=== PATIENT | male | born 1955 | race Hispanic/Latino ===

== ENCOUNTER 2018-04-04 06:11 | Inpatient (IN) | payer MEDICAID, OTHER ==
[2018-04-04 07:12] LABS: BASO # 0.1 K/uL (0.0-0.2); BASO % 0.8 % (0.0-2.0); EOS # 0.1 K/uL (0.0-0.7); EOS % 2.1 % (0.0-4.0); HEMOGLOBIN 12.2 g/dL (12.0-18.0); LYMPH # 1.7 K/uL (1.0-4.3); LYMPH % 24.4 % (20.0-40.0); MEAN CELL VOLUME 91.2 fL (80.0-94.0); MEAN CORPUSCULAR HEMOGLOBIN 31.1 pg (27.0-31.0); MEAN CORPUSCULAR HGB CONC 34.1 g/dL (33.0-37.0); MEAN PLATELET VOLUME 8.9 fL (7.2-11.7); MONO # 0.6 K/uL (0.0-0.8); NEUT # 4.6 K/uL (1.8-7.0); NEUT % 64.7 % (50.0-75.0); RBC 3.93 Mil/uL (4.40-5.90); RED CELL DISTRIBUTION WIDTH 13.5 % (11.5-14.5); WHITE BLOOD COUNT 7.1 K/uL (4.8-10.8)
[2018-04-04 07:28] LABS: ALB/GLOB RATIO 1.6 (1.0-2.1); ALBUMIN 4.1 g/dL (3.5-5.0); ALT/SGPT 26 U/L (21-72); AST/SGOT 23 U/L (17-59); BLOOD UREA NITROGEN 18 mg/dL (9-20); CALCIUM 8.9 mg/dl (8.6-10.4); GFR NON-AFRICAN AMERICAN > 60
[2018-04-04 08:57] LABS: SQUAMOUS EPITHIAL < 1 /hpf (0-5); URINE BILIRUBIN NEGATIVE (NEGATIVE); URINE BLOOD NEGATIVE (NEGATIVE); URINE CLARITY Clear (Clear); URINE COLOR Yellow (YELLOW); URINE GLUCOSE (UA) NORMAL (Normal); URINE LEUKOCYTE ESTERASE NEG Leu/uL (Negative); URINE PROTEIN 2+ mg/dL (NEGATIVE); URINE UROBILINOGEN NORMAL mg/dL (0.2-1.0)
--- NOTE | 2018-04-04 09:44 | C.PDOC ---
History Of Present Illness 62 years old male presents to ED for evaluation of suicidal ideations with plan. He states he plans to cut himself with razor blades. Patient denies HI, hallucinations, or any current physical complaints. Time Seen by Provider: 04/04/18 07:13 Chief Complaint (Nursing): Psychiatric Evaluation History Per: Patient History/Exam Limitations: no limitations Current Symptoms Are (Timing): Still Present Suicide/Self Injury Attempted (Context): None Modifying Factor(s): None Associated Symptoms: Suicidal Thoughts, Suicidal Plan Involuntary Hold By: Emergency Physician Past Medical History Reviewed: Historical Data, Nursing Documentation, Vital Signs Vital Signs: Last Vital Signs Temp 98.1 F 04/04/18 06:20 Pulse 70 04/04/18 06:20 Resp 16 04/04/18 06:20 BP 155/70 H 04/04/18 06:20 Pulse Ox 100 04/04/18 06:20 - Medical History PMH: Depression, Deep Vein Thrombosis, Seizures Family History: States: No Known Family Hx - Social History Hx Alcohol Use: No Hx Substance Use: No Review Of Systems Constitutional: Negative for: Fever, Chills Cardiovascular: Negative for: Chest Pain, Palpitations Respiratory: Negative for: Shortness of Breath Gastrointestinal: Negative for: Nausea, Vomiting, Abdominal Pain, Diarrhea Skin: Negative for: Rash Neurological: Negative for: Weakness, Numbness Psych: Positive for: Depression, Suicidal ideation Physical Exam - Physical Exam Appears: Well, Non-toxic, No Acute Distress, Other (Flat affect ) Skin: Normal Color, Warm, Dry, No Rash Eye(s): bilateral: Normal Inspection Oral Mucosa: Moist Neck: Supple Cardiovascular: Rhythm Regular Respiratory: Normal Breath Sounds, No Rales, No Rhonchi, No Wheezing Gastrointestinal/Abdominal: Normal Exam, Bowel Sounds, Soft, No Tenderness Extremity: Normal ROM Extremity: Bilateral: Atraumatic, Normal Color And Temperature, Normal ROM Neurological/Psych: Oriented x3 Gait: Steady ED Course And Treatment - Laboratory Results Result Diagrams: 04/04/18 07:06 04/10/18 07:31 O2 Sat by Pulse Oximetry: 100 (RA) Pulse Ox Interpretation: Normal Progress Note: Blood work, UA, UDS ordered and reviewed. 10:35am- Patient medically cleared. Pending crisis. 10:47- Patient accepted by Dr. Arevalo for psychiatric admission. Disposition - Disposition Disposition: HOSPITALIZED Disposition Time: 10:47 Condition: STABLE - Clinical Impression Clinical Impression: Depression - Scribe Statement The provider has reviewed the documentation as recorded by the [facility] Vic Calderon All medical record entries made by the Scribe were at my direction and personally dictated by me. I have reviewed the chart and agree that the record accurately reflects my personal performance of the history, physical exam, medical decision making, and the department course for this patient. I have also personally directed, reviewed, and agree with the discharge instructions and disposition. Decision To Admit - Pt Status Changed To: Hospital Disposition Of: Inpatient - Admit Certification Admit to Inpatient:: After my assessment, the patient will require hospitalization for at least two midnights. This is because of the severity of symptoms shown, intensity of services needed, and/or the medical risk in this patient being treated as an outpatient. - InPatient: Physician Admission Certification: I certify that this patient requires 2 or more midnights of care for the following reason:: see notes - . Bed Request Type: Psychiatry Admitting Physician: Rocky Arevalo Patient Diagnosis: Depression
[2018-04-04 10:13] LABS: BARBITURATES, UR POSITIVE (NEGATIVE); BENZODIAZEPINES, UR NEGATIVE (NEGATIVE); OPIATES, UR NEGATIVE (NEGATIVE); PHENCYCLIDINE, UR NEGATIVE (NEGATIVE)
--- NOTE | 2018-04-04 12:41 | PCM.BM ---
<Barbara Falkn - Last Filed: 04/04/18 12:38> Treatment Plan Problems - Problems identified on initial assessmt Social Isolation Date Initiated: 04/04/18 Time Initiated: 12:39 Assessment reference: NA Status: Active Suicidal Ideation Date Initiated: 04/04/18 Time Initiated: 12:39 Assessment reference: NA Status: Monitor Treatment assets and liabiliti Patient Assests: ADL independent, negotiates basic needs, cognitively intact Patient Liabilities: live alone, poor support system, medical problems - Milieu Protocol Maintain good personal hygiene: daily Encourage regular showers, daily Remind patient to perform daily oral care, daily Assist patient to perform ADL's Conduct patient checks and document Observation sheet: Q15 minutes Maintain personal safety: every shift Educate patient to report safety concerns to staff, every shift Monitor environment for contraband/sharps Medication safety: Monitor for expected outcome, potential side effects: every shift, Assess barriers to learning: every shift, Assess readiness for medication education: every shift <Julisa Allan - Last Filed: 04/05/18 11:52> Family Contact Family involvement: Patient does not wish Family/SO involvement Family contact: Patient declines to allow family contact at present - Goals for Treatment Patient goals for treatment: "I want to be discharge." Discharge/Continuing Care - Education Needs Education Needs: Patient Medication, Patient Diagnosis/Disease Process, Patient Coping Skills, Patient Placement options, Patient Community resources - Discharge Discharge Criteria: Free of Suicidal thoughts, Free of agitation, Normal sleep pattern, Ability to care for self, Reduction of target symptoms Discharge to:: Assisted - Treatment Team Participation Discussed with Family/SO: No Was Patient/Family/SO present at Treatment Team Meeting: Yes <Fabiola Blackwood - Last Filed: 04/05/18 14:00> - Diagnosis (1) Depression, major, severe recurrence Status: Acute Interventions: 04/05/18 14:00 * Assess/adjust medications daily and /or as needed * See patient on an individual basis 7x/week to assess symptoms of depression * Monitor for side effects & effectiveness of medications *
--- NOTE | 2018-04-04 17:40 | PCM.PSYCH ---
Initial Psychiatric Evaluation - Initial Psychiatric Evaluation Type of Admission: Voluntary Legal Status: Capacity Chief Complaint (in patient's own words): I was depressed, wanted to cut my wrist but police brought me here. History of Present Illness and Precipitating Events: Patient is a 62 years old, , on disability, male with history of depression since 2010, no treatment was admitted due to worsening of depression and suicidal ideations. Patient was started feeling depressed in 2010 after the of his . Patient was not on any treatment for depression since then. Today patient started feeling more depressed, with suicidal ideations with plan to cut his wrist with a blade. At that time patient was on a train station when he was caught with a blade, by police who brought him to the [facility]. Patient reported feeling depression with decreased sleep, no change in appetite. Frequent suicidal ideations, history of 1 suicidal I attempt after the of his in 2010, by walking [place] track. Patient was admitted in the hospital at that time. Patient reported feeling hopelessness and helplessness. Patient was in a boarding home and was attending partial care from August 2015 to August 2017. He was also seeing a psychiatrist, last seen about 6 months ago. Was not getting any medication from his psychiatrist. Was not getting any medications from his psychiatrist. Patient denied any psychotic, manic or anxiety symptoms. Patient has history of alcoholism in the past. Last used more than 30 years ago. Patient smokes 5 cigarettes daily and refusing for nicotine patch. Patient has history of abdominal surgery and vascular surgery. Recently he had bypass surgery and femoral artery, and had stent placement on February 2018. Patient was born in [place], has 10th grade of education and also has GED. He is disabled. He is and has 7 grown up children from 2 wives. Patient is homeless since August 2017. Before that he was living in a boarding home. His height is 6 feet 1 inches and weight is 176 pounds. Current Medications: Active Medications Generic Name Dose Route Start Last Admin Trade Name Freq PRN Reason Stop Dose Admin Aspirin 81 mg 04/04/18 13:15 04/04/18 14:06 Ecotrin PO 81 mg DAILY JIN Administration Influenza Virus Vaccine 60 mcg 04/07/18 10:00 Flucelvax Quad [id number] Syr IM 04/07/18 10:01 .ONCE ONE Levetiracetam 500 mg 04/04/18 18:00 Keppra PO BID [facility] Levetiracetam 250 mg 04/04/18 18:00 Keppra PO BID [facility] Lorazepam 1 mg 04/04/18 13:09 04/04/18 14:06 Ativan PO 1 mg Q6 PRN Administration Anxiety Phenobarbital 64.8 mg 04/04/18 18:00 Phenobarbital Tab PO BID [facility] Phenytoin 200 mg 04/04/18 18:00 Dilantin PO BID [facility] Pneumococcal Polyvalent Vaccine 0.5 ml 04/07/18 10:00 Pneumovax 23 Vaccine IM 04/07/18 10:01 .ONCE ONE Rivaroxaban 20 mg 04/04/18 13:15 04/04/18 14:06 Xarelto PO 20 mg DAILY [facility] Administration Past Psychiatric History - Past Psychiatric History Previous Treatment History: None History of Abuse: None reported History of ETOH/Drug Use: See HPI History of Family Illness: None reported Pertinent Medical Hx (Current Medical&Sleep Prob, Allergies): Allergies Allergy/AdvReac Type Severity Reaction Status Date / Time No Known Allergies Allergy Verified 04/04/18 06:25 Aspirin EC 81 mg PO DAILY 04/04/18 Levetiracetam [Keppra Xr] 750 mg PO BID 04/04/18 Phenytoin Sodium Extended [Extended Phenytoin Sodium] 200 mg PO Q12 04/04/18 RX: Phenobarbital 60 mg PO Q12 04/04/18 RX: Ropinirole HCl 0.25 mg PO HS 04/04/18 Rivaroxaban [Xarelto] 20 mg PO DAILY 04/04/18 Epilepsy Vascular disease Review of Systems - Psychiatric Psychiatric: As Per HPI, Depression, Irritability, Suicidal Ideation Mental Status Examination - Personal Presentation Personal Presentation: Looks stated age - Affect Affect: Depressed - Motor Activity Motor Activity: Calm - Reliability in Providing Information Reliability in Providing Information: Fair - Speech Speech: Organized - Mood Mood: Depressed - Formal Thought Process Formal Thought Process: No Impairment - Hallucinations/Delusions Hallucinations: Other (None reported) Delusions: Other - Obsessions/Compulsions Obsessions: None Compulsions: None - Cognitive Functions Orientation: Person, Place, Situation, Time Sensorium: Alert Attention/Concentration: Attentive Abstract Thinking: [place] Estimate of Intelligence: Average Judgement: Intact, as evidence by: Insight regarding need for hospitalization Memory: Recent intact, as evidence by: Ability to recall events of the day, Remote intact, as evidenced by: Ability to recall historical events - Risk Risk: Seizure, Diminished functioning - Strength & Assets Inventory Strength & Assets Inventory: Cooperative - Limitations Limitations: Other (Homeless) DSM 5 DX - DSM 5 DSM 5 Diagnosis: Major depressive disorder recurrent severe without psychotic features Epilepsy Vascular disease - Recommended/Plan of Treatment Treatment Recommendations and Plan of Treatment: Patient education. Supportive therapy. Will start patient's home medications. Patient is also getting phenobarbital and Xarelto which has interaction with each other and level of Xarelto is reduced by phenobarbital. Patient is aware of this and wants to continue all of his medications as he was taking before. Next PRN medications. Projected ELOS: 8-10-day - Smoking Cessation Smoking Cessation Initiated: No Reason for not providing: Patient refused
[2018-04-04] MEDS ORDERED: Phenytoin 100 mg/4 ml Oral Susp UD PO SCH (18:00)
--- NOTE | 2018-04-05 12:26 | PCM.PYCHPN ---
Psychiatric Progress Note - Psychiatric Progress Note Patient seen today, length of contact: 20 min Patient Chief Complaint: "I'm not well of course" Problems Identified/Issues Discussed: The pt is seen, chart reviewed, case discussed with staff. The pt is compliant with medications and reports no side-effects. Symptoms are improving but needs more time to stabilize. He is very easily irritable, sarcastic and even intimidating at times. He belittles therapy. He claims he cannot go to shelters b/c of his seizure meds, which may be true for rehabs but not shelters. Support given, psycho-education provided. After care discussed. Medication Change: Yes (start lexapro and remeron) Medical Record Reviewed: Yes Mental Status Examination - Cognitive Function Orientation: Person, Place, Situation, Time Memory: Impaired Attention: Poor Concentration: Poor Association: WNL Fund of Knowledge: WNL - Mood Mood: Depressed, Anxious - Affect Affect: Constricted, Depressed, Other (irate) - Speech Speech: Appropriate - Formal Thought Process Formal Thought Process: No Impairment - Suicidal Ideation Suicidal Ideation: No - Homicidal Ideation Homicidal Ideation: No Goal/Treatment Plan - Goal/Treatment Plan Need for Continued Stay: Severe depression anxiety, Discharge may exacerbated symptoms, Severe functional impairment Progress Toward Problem(s) and Goals/Treatment Plan: Continue medications Support and psychoeducation daily Attend groups and activities daily After care planning by STORMY Family contact by STORMY Suicide risk assessment daily Estimated Date of D/C: 04/08/18
--- NOTE | 2018-04-06 13:21 | PCM.PYCHPN ---
Psychiatric Progress Note - Psychiatric Progress Note Patient seen today, length of contact: 18 min Patient Chief Complaint: "I'm tired" Problems Identified/Issues Discussed: The pt is seen, chart reviewed, case discussed with staff. Support and psychoeducation given, CBT used briefly No new symptoms reported, improving slowly and needs more time No SEs from medications, risks discussed. After care discussed Medication Change: Yes (start lexapro and remeron) Medical Record Reviewed: Yes Mental Status Examination - Cognitive Function Orientation: Person, Place, Situation, Time Memory: Impaired Attention: Poor Concentration: Poor Association: WNL Fund of Knowledge: WNL - Mood Mood: Depressed, Anxious - Affect Affect: Constricted, Depressed, Other (irate) - Speech Speech: Appropriate - Formal Thought Process Formal Thought Process: No Impairment - Suicidal Ideation Suicidal Ideation: No - Homicidal Ideation Homicidal Ideation: No Goal/Treatment Plan - Goal/Treatment Plan Need for Continued Stay: Severe depression anxiety, Discharge may exacerbated symptoms, Severe functional impairment Progress Toward Problem(s) and Goals/Treatment Plan: Continue medications Support and psychoeducation daily Attend groups and activities daily After care planning by STORMY Family contact by STORMY Suicide risk assessment daily Estimated Date of D/C: 04/08/18
[2018-04-07] MEDS ORDERED: Pneumococcal 23-Valent Vaccine IM ONE (10:00)
[2018-04-07] MEDS ORDERED: Influenza Vaccine 60 mcg/0.5 mL SYR (4YR UP) IM ONE (10:00)
--- NOTE | 2018-04-07 14:09 | PCM.PYCHPN ---
Psychiatric Progress Note - Psychiatric Progress Note Patient seen today, length of contact: 15 min Patient Chief Complaint: "I'm not OK" Problems Identified/Issues Discussed: The pt is seen again, chart reviewed, and case is discussed with the team. The pt denies any side-effects from meds except for sedation. Attend activities and groups, brief individual therapy provided Not ready for discharge due to ongoing symptoms and high relapse risk. After care discussed again. Medication Change: Yes (alban streeter) Medical Record Reviewed: Yes Mental Status Examination - Cognitive Function Orientation: Person, Place, Situation, Time Memory: Impaired Attention: Poor Concentration: Poor Association: WNL Fund of Knowledge: WNL - Mood Mood: Depressed, Anxious - Affect Affect: Constricted, Depressed, Other (irate) - Speech Speech: Appropriate - Formal Thought Process Formal Thought Process: No Impairment - Suicidal Ideation Suicidal Ideation: No - Homicidal Ideation Homicidal Ideation: No Goal/Treatment Plan - Goal/Treatment Plan Need for Continued Stay: Severe depression anxiety, Discharge may exacerbated symptoms (still somewhat suicidal), Severe functional impairment Progress Toward Problem(s) and Goals/Treatment Plan: Continue medications Support and psychoeducation daily Attend groups and activities daily After care planning by STORMY Family contact by STORMY Suicide risk assessment daily Estimated Date of D/C: 04/09/18
--- NOTE | 2018-04-08 11:00 | PCM.PYCHPN ---
Psychiatric Progress Note - Psychiatric Progress Note Patient seen today, length of contact: 15 min Patient Chief Complaint: "I'm not okay" Problems Identified/Issues Discussed: Patient lying in bed, per nursing minimally participating in groups. The pt is seen again, chart reviewed, and case is discussed with the team. The pt denies any side-effects from meds except for sedation. Not ready for discharge due to ongoing symptoms and high relapse risk. After care discussed again. Medication Change: Yes (alban streeter) Medical Record Reviewed: Yes Mental Status Examination - Cognitive Function Orientation: Person, Place, Situation, Time Memory: Impaired Attention: Poor Concentration: Poor Association: WNL Fund of Knowledge: WNL - Mood Mood: Depressed, Anxious - Affect Affect: Constricted, Depressed, Other (irate) - Speech Speech: Appropriate - Formal Thought Process Formal Thought Process: No Impairment - Suicidal Ideation Suicidal Ideation: No - Homicidal Ideation Homicidal Ideation: No Goal/Treatment Plan - Goal/Treatment Plan Need for Continued Stay: Severe depression anxiety, Discharge may exacerbated symptoms (still somewhat suicidal), Severe functional impairment Progress Toward Problem(s) and Goals/Treatment Plan: Lexapro 10 mg Po daily Trazodone 50 mg PO HS PRN Continue medications Support and psychoeducation daily Attend groups and activities daily After care planning by STORMY Family contact by STORMY Suicide risk assessment daily Estimated Date of D/C: 04/09/18
--- NOTE | 2018-04-09 11:56 | PCM.PYCHPN ---
Psychiatric Progress Note - Psychiatric Progress Note Patient seen today, length of contact: 15 min Patient Chief Complaint: "I'm very depressed" Problems Identified/Issues Discussed: The pt is seen, chart reviewed, case discussed with staff. The pt is compliant with medications and reports no side-effects. Symptoms are improving but needs more time to stabilize. Still very depressed and has no place to go properly High risk for relapse Pt attends groups and activities. But isolates self a lot. In bed most of the time Support given, psycho-education provided. After care discussed. Medication Change: Yes (Lexapro increased) Medical Record Reviewed: Yes Mental Status Examination - Cognitive Function Orientation: Person, Place, Situation, Time Memory: Impaired Attention: Poor Concentration: Poor Association: WNL Fund of Knowledge: WNL - Mood Mood: Depressed, Anxious - Affect Affect: Constricted, Depressed, Other (irate) - Speech Speech: Appropriate - Formal Thought Process Formal Thought Process: No Impairment - Suicidal Ideation Suicidal Ideation: No - Homicidal Ideation Homicidal Ideation: No Goal/Treatment Plan - Goal/Treatment Plan Need for Continued Stay: Severe depression anxiety, Discharge may exacerbated symptoms (still somewhat suicidal), Severe functional impairment Progress Toward Problem(s) and Goals/Treatment Plan: Continue medications Support and psychoeducation daily Attend groups and activities daily After care planning by STORMY Family contact by STORMY Suicide risk assessment daily Estimated Date of D/C: 04/12/18
[2018-04-10 07:52] LABS: ALB/GLOB RATIO 1.6 (1.0-2.1); ALBUMIN 3.7 g/dL (3.5-5.0); ALT/SGPT 30 U/L (21-72); AST/SGOT 32 U/L (17-59); BLOOD UREA NITROGEN 21 mg/dL (9-20); CALCIUM 8.5 mg/dl (8.6-10.4); GFR NON-AFRICAN AMERICAN > 60
--- NOTE | 2018-04-11 23:08 | PCM.PYCHPN ---
Psychiatric Progress Note - Psychiatric Progress Note Patient seen today, length of contact: 16 min Patient Chief Complaint: "I don't know what I will do when I leave" Problems Identified/Issues Discussed: The pt is seen, chart reviewed, case discussed with staff. Support and psychoeducation given, CBT used briefly No new symptoms reported, improving slowly and needs more time He is more depressed today - Lexapro is increased again His hopelesness is addressed. Not actively suicidal but likely harboring some thoughts -very pessimistic and nihilistic even No SEs from medications, risks discussed. After care discussed Medication Change: Yes (alban streeter) Medical Record Reviewed: Yes Mental Status Examination - Cognitive Function Orientation: Person, Place, Situation, Time Memory: Impaired Attention: Poor Concentration: Poor Association: WNL Fund of Knowledge: WNL - Mood Mood: Depressed, Anxious - Affect Affect: Constricted, Depressed, Other (irate) - Speech Speech: Appropriate - Formal Thought Process Formal Thought Process: No Impairment - Suicidal Ideation Suicidal Ideation: No - Homicidal Ideation Homicidal Ideation: No Goal/Treatment Plan - Goal/Treatment Plan Need for Continued Stay: Severe depression anxiety, Discharge may exacerbated symptoms (still somewhat suicidal), Severe functional impairment Progress Toward Problem(s) and Goals/Treatment Plan: Continue medications Support and psychoeducation daily Attend groups and activities daily After care planning by STORMY - He now says he may stay around. Suicide risk assessment daily Estimated Date of D/C: 04/12/18
--- NOTE | 2018-04-11 23:08 | PCM.PYCHPN ---
Psychiatric Progress Note - Psychiatric Progress Note Patient seen today, length of contact: 16 min Patient Chief Complaint: "I'm a little better" Problems Identified/Issues Discussed: The pt is seen, chart reviewed, case discussed with staff. The pt is compliant with medications and reports no side-effects. Symptoms are improving but he is still very isolated, in bed almost all the time, insinuates hopelessness. Overall, however, he has improved from the day he was admitted. Pt attends groups and activities but selectively and does not participate much Support given, psycho-education provided. After care discussed. Day program recommended. Medication Change: Yes (increase lexapro to 20 mg) Medical Record Reviewed: Yes Mental Status Examination - Cognitive Function Orientation: Person, Place, Situation, Time Memory: Impaired Attention: Poor Concentration: Poor Association: WNL Fund of Knowledge: WNL - Mood Mood: Depressed, Anxious - Affect Affect: Constricted, Depressed, Other (irate) - Speech Speech: Appropriate - Formal Thought Process Formal Thought Process: No Impairment - Suicidal Ideation Suicidal Ideation: No - Homicidal Ideation Homicidal Ideation: No Goal/Treatment Plan - Goal/Treatment Plan Need for Continued Stay: Severe depression anxiety, Discharge may exacerbated symptoms (still somewhat suicidal), Severe functional impairment Progress Toward Problem(s) and Goals/Treatment Plan: Continue medications Support and psychoeducation daily Attend groups and activities daily After care planning by STORMY Suicide risk assessment daily CBT Estimated Date of D/C: 04/12/18
[2018-04-12 05:58] VITALS: RESP 18
--- NOTE | 2018-04-12 12:33 | PCM.PYCHPN ---
Psychiatric Progress Note - Psychiatric Progress Note Patient seen today, length of contact: 17 min Patient Chief Complaint: "I don't know" Problems Identified/Issues Discussed: The pt is seen, chart reviewed, case discussed with staff. Support and psychoeducation given, CBT used again He was supposed to be discharged today but he felt overwhelmed and not ready. He asked for one more day Since he has a high suicide risk, and relapse risk, it is granted. SW will arrange recommendations for shelters too. No SEs from medications, risks discussed. He is now on Lexapro 20 mg since yesterday. Tolerating well. After care discussed - outpt level per his request Medication Change: Yes (increased lexapro to 20 mg) Medical Record Reviewed: Yes Mental Status Examination - Cognitive Function Orientation: Person, Place, Situation, Time Memory: Impaired Attention: Poor Concentration: Poor Association: WNL Fund of Knowledge: WNL - Mood Mood: Depressed, Anxious - Affect Affect: Constricted, Depressed, Other (irate) - Speech Speech: Appropriate - Formal Thought Process Formal Thought Process: No Impairment - Suicidal Ideation Suicidal Ideation: No - Homicidal Ideation Homicidal Ideation: No Goal/Treatment Plan - Goal/Treatment Plan Need for Continued Stay: Severe depression anxiety, Discharge may exacerbated symptoms (still somewhat suicidal), Severe functional impairment Progress Toward Problem(s) and Goals/Treatment Plan: Continue medications Support and psychoeducation daily Attend groups and activities daily After care planning by STORMY Suicide risk assessment daily CBT Estimated Date of D/C: 04/13/18 If changed, why: see HPI
[2018-04-13 06:32] VITALS: BP 114/86; PULSE 58; TEMP 98.5
--- NOTE | 2018-04-13 09:51 | PCM.PYCHDC ---
Mental Status Examination - Mental Status Examination Orientation: Person, Place, Situation, Time Memory: Intact Mood: Anxious Affect: Constricted Speech: Appropriate Attention: WNL Concentration: WNL Association: WNL Fund of Knowledge: WNL Formal Thought Process: No Impairment Suicidal Ideation: No Current Homicidal Ideation?: No Discharge Summary - Discharge Note Consultations:: List each consultation separately and include: 1. Reason for request. 2. Findings. 3. Follow-up Summary of Hospital Course include:: 1. Description of specific treatment plan utilized for patients during their course of treatmen. 2. Summarize the time- course for resolution of acute symptoms and/or regressed behaviors. 3. Describe issues identified and worked on during hospitalization. 4. Describe medication utilized. 5. Describe medical problems identified and treated. 6. Reassessment of suicide risk Summary of Hospital Course: Hospital course: The pt was admitted and started on treatment with psychotherapy, support, psychoeducation and medications. AL and CBT used. The pt attended groups and activities, as well as milieu therapy. All the risks and benefits of medications are discussed and the patient understood and agreed. The pt improved with the treatments provided. After care discussed with the patient. He will go to [facility]. - Diagnosis (1) Depression, major, severe recurrence Status: Acute - Final Diagnosis (DSM 5) Condition upon Discharge: STABLE DSM 5: Major depressive disorder recurrent severe without psychotic features Epilepsy Vascular disease Disposition: HOME/ ROUTINE Follow-up Treatment Plan: Continue below medications after discharge. Follow after care plan as discussed. Use relapse prevention skills Return to ER or call 911 if suicidal, homicidal or symptoms relapse. Stay away from stress, alcohol and drugs. See primary doctor regularly and get labs. Prescriptions/Medication Reconciliation: Aspirin [Ecotrin] 81 mg PO DAILY #30 tabec Escitalopram [Lexapro] 20 mg PO DAILY #30 tab
[2018-04-14 14:33] VITALS: O2SAT 100
== END 2018-04-13 12:30 | disposition home or self-care (01) | DRG 430 ==
LOC: C.ER 06:11 → C.9E 10:47 → C.5E 11:01
PROC: GZHZZZZ Group Psychotherapy (ICD-10-PCS; principal; 2018-04-04)
PROC: GZ58ZZZ Individual Psychotherapy, Cognitive-Behavioral (ICD-10-PCS; 2018-04-04)
PROC: GZ56ZZZ Individual Psychotherapy, Supportive (ICD-10-PCS; 2018-04-04)
DX: F33.2 Major depressive disorder, recurrent severe without psychotic features (principal); G40.909 Epilepsy, unspecified, not intractable, without status epilepticus; F17.210 Nicotine dependence, cigarettes, uncomplicated; Z59.0 Homelessness; R45.851 Suicidal ideations; I99.9 Unspecified disorder of circulatory system